=== PATIENT | female | born 1960 | race Caucasian/White ===

== ENCOUNTER 2020-12-24 20:37 | Emergency (ER) | payer OTHER ==
[~2020-12-24] VITALS: Ht 157.5 cm; Wt 59.9 kg
[~2020-12-24 20:37] MED LIST: ALBU90OI; ALBU90OI INH; CEPH500 PO; CYCL10 PO; FEXO60; FLUO10; FLUSAL1005 IH; FLUSAL2505; HORMONE; IBUP800 PO; MONT10T PO; OXYACE5T PO
== END 2020-12-24 23:45 | disposition home or self-care (01) ==
LOC: ER 20:37
DX: S00.03XA Contusion of scalp, initial encounter (principal); V19.9XXA Pedal cyclist (driver) (passenger) injured in unspecified traffic accident, initial encounter; Y92.410 Unspecified street and highway as the place of occurrence of the external cause
CPT/HCPCS: 70450; 99283-25; A9270